=== PATIENT | female | born 1990 | race Caucasian/White ===

== ENCOUNTER 2018-08-21 18:11 | Emergency (ER) | payer SELFPAY ==
--- NOTE | 2018-08-21 18:47 | EDPHY ---
H & P Time Seen by Provider: 08/21/18 18:27 HPI/ROS: CHIEF COMPLAINT: Bilateral arm injury HISTORY OF PRESENT ILLNESS: Patient is a 28-year-old female who presents emergency department after falling while ice skating. Patient states that she landed forward on outstretched arms. Patient complains of left wrist pain and left elbow pain. The patient complains of right forearm pain and right elbow pain. Pain is moderate. Her arms hurt worse with movement. She has no numbness or tingling. No previous arm injury or surgery. The patient did not strike her head. She denies other injuries. REVIEW OF SYSTEMS: 10 systems were reveiwed and are negative with the exception of the elements mentioned in the history of present illness. Past Medical/Surgical History: Negative Past surgical history: Negative The social history: Patient does not smoke Smoking Status: Never smoked Physical Exam: Vitals noted General Appearance: Alert and no distress. Head: Pupils equal. Normal. Respiratory: No respiratory distress. Cardiac: regular rate and rhythm. Extremities: LUE: Patient's left upper extremity appears normal. The patient has mild tenderness over the posterior aspect of her left wrist. There is no deformity crepitus. Patient also has left radial head tenderness with rotation of her forearm. There is no deformity at the elbow. No swelling. Neurovascular intact distally. RUE: The patient's right arm appears normal. There is no swelling. Patient has mild tenderness palpation over her mid forearm. She has mild tenderness palpation over her right radial head. No deformity. Neurovascularly intact distally. Skin: No rashes or lesions. Neuro: Alert. Normal mood and affect. Constitutional: Initial Vital Signs Temperature (C) 37.2 C 08/21/18 18:16 Heart Rate 65 08/21/18 18:16 Respiratory Rate 18 08/21/18 18:16 Blood Pressure 114/89 H 08/21/18 18:16 O2 Sat (%) 99 08/21/18 18:16 O2 Delivery Mode Room Air Allergies/Adverse Reactions: No Known Allergies Allergy (Unverified 08/21/18 18:15) Home Medications: Medication Instructions Recorded Bcp 08/21/18 Medical Decision Making - Diagnostics Imaging Results: Imaging Impressions Elbow X-Ray 08/21/18 00:00 Impression: 1. 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 2. No fracture identified. 2. Left Elbow, 4 views Findings: No fracture, malalignment or elbow joint effusion is identified. Impression: Negative. 3. Right Forearm, 2 views History: Pain post fall ice skating Findings: No fracture or dislocation is identified. The wrist and elbow are grossly normally aligned. Impression: Negative 4. Right elbow, 4 views History: Pain post trauma, fall skating Findings: There is an elbow joint effusion and an acute nondisplaced transverse fracture of the radial head. The radial head remains normally aligned with the capitellum. Impression: Acute radial head fracture. Elbow X-Ray 08/21/18 18:26 Impression: 1. 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 2. No fracture identified. 2. Left Elbow, 4 views Findings: No fracture, malalignment or elbow joint effusion is identified. Impression: Negative. 3. Right Forearm, 2 views History: Pain post fall ice skating Findings: No fracture or dislocation is identified. The wrist and elbow are grossly normally aligned. Impression: Negative 4. Right elbow, 4 views History: Pain post trauma, fall skating Findings: There is an elbow joint effusion and an acute nondisplaced transverse fracture of the radial head. The radial head remains normally aligned with the capitellum. Impression: Acute radial head fracture. Forearm X-Ray 08/21/18 18:26 Impression: 1. 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 2. No fracture identified. 2. Left Elbow, 4 views Findings: No fracture, malalignment or elbow joint effusion is identified. Impression: Negative. 3. Right Forearm, 2 views History: Pain post fall ice skating Findings: No fracture or dislocation is identified. The wrist and elbow are grossly normally aligned. Impression: Negative 4. Right elbow, 4 views History: Pain post trauma, fall skating Findings: There is an elbow joint effusion and an acute nondisplaced transverse fracture of the radial head. The radial head remains normally aligned with the capitellum. Impression: Acute radial head fracture. Wrist X-Ray 08/21/18 18:26 Impression: 1. 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 2. No fracture identified. 2. Left Elbow, 4 views Findings: No fracture, malalignment or elbow joint effusion is identified. Impression: Negative. 3. Right Forearm, 2 views History: Pain post fall ice skating Findings: No fracture or dislocation is identified. The wrist and elbow are grossly normally aligned. Impression: Negative 4. Right elbow, 4 views History: Pain post trauma, fall skating Findings: There is an elbow joint effusion and an acute nondisplaced transverse fracture of the radial head. The radial head remains normally aligned with the capitellum. Impression: Acute radial head fracture. ED Course/Re-evaluation: In the emergency department the patient had an x-ray of her left elbow and left wrist. She also had an x-ray of her right forearm and right elbow. Please review the dictated report by the radiologist. I reviewed the imaging studies. The patient has a right radial head fracture. The patient has widening of her left scapholunate joint. I discussed the results with the patient. I answered all her questions. Patient was placed in a left thumb spica splint. Patient was placed in a right shoulder sling. Patient was neurovascularly intact post splint placement. The patient was given follow-up information for Dr. Aviles. She was given warnings prior to leaving. She will return with worsening symptoms. Differential Diagnosis: My differential includes but is not limited to contusion, sprain, strain, fracture, dislocation Departure - Departure Disposition: Home, Routine, Self-Care Clinical Impression: Sprain of scapholunate ligament Qualifiers: Encounter type: initial encounter Laterality: left Qualified Code(s): S63.512A - Sprain of carpal joint of left wrist, initial encounter Radial head fracture Qualifiers: Encounter type: initial encounter Fracture type: closed Fracture alignment: nondisplaced Laterality: right Qualified Code(s): S52.124A - Nondisplaced fracture of head of right radius, initial encounter for closed fracture Condition: Good Instructions: Elbow Fracture (ED), Wrist Injury (ED) Additional Instructions: You have widening of you're scapholunate joint on the left wrist. This will need evaluation by Orthopedics. Keep your splint in place until you see Orthopedics. He also have a fracture of you're right radial head. Keep your sling in place. This will also require orthopedic follow-up. Call Orthopedics on Wednesday to make the next available appointment. Referrals: Alexander Aviles MD [Medical Doctor] - 5-7 days, call for appt.
[2018-08-21 19:42] VITALS: BP 115/78
== END 2018-08-21 19:55 | disposition home or self-care (01) ==
DX: S52.125A Nondisplaced fracture of head of left radius, initial encounter for closed fracture (principal); S63.512A Sprain of carpal joint of left wrist, initial encounter; V00.211A Fall from ice-skates, initial encounter; Y92.9 Unspecified place or not applicable; Y99.9 Unspecified external cause status; Y93.21 Activity, ice skating
CPT/HCPCS: A4565; L3807